=== PATIENT | male | born 1985 | race Caucasian/White ===

== ENCOUNTER 2023-09-15 01:40 | Outpatient (CLI) | payer OTHER, SELFPAY ==
[2023-09-15 08:11] LABS: Hemoglobin A1C 5.5 % (<5.7)
[2023-09-15 08:40] LABS: ALT 34 U/L (16-63); AST 24 U/L (15-37); Albumin 4.3 g/dL (3.4-5.0); Alkaline Phosphatase 69 U/L (46-116); Anion Gap 6.3 mmol/L (3-11); BUN 13 mg/dL (7-18); Bilirubin, Total 0.9 mg/dL (0.2-1.0); CO2 30.7 mmol/L (21.0-32.0); CREATININE 1.3 mg/dL (0.70-1.30); Calcium 9.2 mg/dL (8.5-10.1); Calculated LDL 127 mg/dL (<100); Chloride 102 mmol/L (98-107); Cholesterol 204 mg/dL (<200); Estimated GFR 72.11 (mL/min/1.73m2); Glucose 117 mg/dL (74-106); HDL Cholesterol 57 mg/dL (40-60); Potassium 4.2 mmol/L (3.5-5.1); Sodium 139 mmol/L (136-145); TSH (W/Ref FT4) 5.67 uIU/mL (0.36-3.74); Total Protein 8.1 g/dL (6.4-8.2); Triglyceride 104 mg/dL (<150)
[2023-09-15 08:59] LABS: FREE T4 0.86 ng/dL (0.76-1.46)
== END 2023-09-15 01:41 | disposition home or self-care (01) ==
LOC: LBO 01:41
PROVIDERS: PCP Nurse Practitioner Family; Visit Provider Nurse Practitioner Family
DX: Z00.00 Encounter for general adult medical examination without abnormal findings (principal)
CPT/HCPCS: 36415; 80053; 80061; 83036; 84439; 84443

== ENCOUNTER 2023-11-23 17:05 | Outpatient (REF) | payer OTHER, SELFPAY | END 2023-11-23 17:06 | disposition home or self-care (01) | LOC: LBN 17:05 | PROVIDERS: PCP Nurse Practitioner Family; Visit Provider Physician Assistant | DX: J02.9 Acute pharyngitis, unspecified (principal) | CPT/HCPCS: 87070 ==